=== PATIENT | female | born 1945 | race American Indian/Alaskan Native ===

== ENCOUNTER 2022-05-14 05:52 | Day surgery (SDC) | payer MEDICARE, OTHER ==
[~2022-05-14] VITALS: Ht 157.5 cm; Wt 55.9 kg
--- NOTE | ~2022-05-14 | OR ---
[facility] [address] [place], [place] [address] Draft DATE OF OPERATION: 05/14/2022 SURGEON: Pal Carranza MD PREOPERATIVE DIAGNOSIS: Asymptomatic gallstones and 15 mm gallbladder wall polyp. POSTOPERATIVE DIAGNOSIS: Asymptomatic gallstones and 15 mm gallbladder wall polyp. PROCEDURES: 1. Laparoscopic cholecystectomy with intraoperative cholangiogram. 2. Surgeon-directed fluoroscopy. ANESTHESIA: General endotracheal, Yevgeniy Jose NET FISHER and local 10 mL of 0.25% Marcaine with epinephrine. INDICATION: This 76-year-old woman is a patient of Annmarie Smallwood PA-C from [facility] and recently Birdie Zaman MD, Urology. She was noted to have microhematuria and underwent a CT scan which did not elucidate the source of her microhematuria but did demonstrate gallstones as well as a 15 mm gallbladder wall polyp. The patient has essentially no symptoms related to the gallbladder that can be discerned, but given the size of the polyp (15 mm), the risk of malignancy in the gallbladder polyp is rather increased. Current standards and guidelines indicate appropriateness of cholecystectomy for those patients with gallbladder wall polyps greater than 10 mm in size on the basis of malignancy risk (between 10 and 60%). She is admitted for cholecystectomy on that basis. The risks of bleeding, infection, bile duct injury, need for open procedure and of course, other unforeseen complications were reviewed with her in detail. She understands and wished to proceed. FINDINGS: The airway was secured with a glidescope approach as she has somewhat distorted upper airway anatomy for some reason. It was accomplished safely of course. That was somewhat unexpected as she has a low BMI and no external findings to account for any airway distortion. As regard to the operation, the liver appeared normal. There was no sign of periportal adenopathy. The gallbladder did not appear to be acutely inflamed by any means. The gallbladder once excised showed a large minimally pedunculated villiform polyp 15 mm in size. There were numerous small black gallstones as well. PATIENT NAME: ALVINO HERNANDEZ OPERATIVE REPORT DATE OF : 43 REPORT #: [id number] PHYSICIAN: PAL CARRANZA MD PCP: ANNMARIE SMALLWOOD REPORT IS CONFIDENTIAL AND NOT TO BE RELEASED WITHOUT AUTHORIZATION [facility] [address] [place], [place] [address] Draft Intraoperative cholangiogram was normal. Operation was accomplished without problem or complication in any way. DESCRIPTION OF PROCEDURE: The patient was brought to the operating room, and given a general endotracheal anesthetic. Preoperative antibiotic Ancef was given. Sequential compression device stockings were used and heparin subcutaneously administered. The abdomen was prepared with a chlorhexidine solution and draped sterilely. A lower midline incision was notable from the past. Infraumbilical incision was made and using an open Kayden cannula technique, the abdomen was entered and pneumoperitoneum achieved to a level of 14 mmHg of carbon dioxide gas. Intra-abdominal inspection showed no sign of ascites or carcinomatosis. The liver appeared normal. The gallbladder had a generally normal appearance. It was slightly distended. No doubt related to her n.p.o. status. Three additional trocars were placed in usual configuration in the subxiphoid, right midclavicular, and right anterior axillary line. The gallbladder was elevated cephalad and retracted laterally. Using blunt electrocautery dissection, the triangle of Calot was dissected free. A relatively obvious biliary anatomy was noted including the common bile duct, common hepatic duct, and infundibulum of the gallbladder. With meticulous care, the triangle of Calot was dissected free ultimately identifying the cystic duct and cystic arterial branch. The cystic artery was doubly clipped and divided and the clip was applied across the gallbladder cystic duct junction and a transverse choledochotomy made in the cystic duct. Egress of clear bile was noted. Using the Vaughn type cholangiocatheter, intraoperative cholangiography was undertaken showing free flow of contrast in biliary tree with prompt emptying into the duodenum. There was no sign of filling defect or other abnormality. The catheter was removed and the cystic duct was triply clipped and divided and the gallbladder dissected free in a retrograde fashion without entry into the gallbladder. Gallbladder was extracted through the infraumbilical port site without problem, opening on the back table and found to have black soft gallstones but also a large 15 mm polyp. It appeared to have a very narrow pedunculated base grossly. Photographs were taken. The intra-abdominal cavity was reinspected and irrigation undertaken. There was no sign of bleeding or other problem. Certainly, no bile leak or other issue. Excess irrigation fluid was suctioned free and the trocars removed under direct visualization showing no sign of bleeding. The infraumbilical fascial incision was reapproximated with interrupted 0 Vicryl suture. 10 mL of 0.25% Marcaine with epinephrine was injected locally. The skin was then closed with interrupted 3-0 Vicryl. Steri-Strips were applied. The patient was ultimately extubated and transferred to the recovery room in good condition having suffered no complication. Sponge, needle, and instrument counts were reported as correct x3. PATIENT NAME: ALVINO HERNANDEZ OPERATIVE REPORT DATE OF : 43 REPORT #: [id number] PHYSICIAN: PAL CARRANZA MD PCP: ANNMARIE SMALLWOOD REPORT IS CONFIDENTIAL AND NOT TO BE RELEASED WITHOUT AUTHORIZATION [address], [place] [address] Draft MD CLEMENTE Wang/JEAN PIERRE /[id number] cc: Annmarie Zaman MD Copies: ANNMARIE SMALLWOOD AIMEE MD ~ PATIENT NAME: ALVINO HERNANDEZ OPERATIVE REPORT DATE OF : 43 REPORT #: [id number] PHYSICIAN: PAL CARRANZA MD PCP: ANNMARIE SMALLWOOD REPORT IS CONFIDENTIAL AND NOT TO BE RELEASED WITHOUT AUTHORIZATION
[~2022-05-14 05:52] MED LIST: CALCIUM + D3 E1 EACH PO
[2022-05-14] MEDS ORDERED: VITAMIN B-121000 MC3 PO (06:15)
--- NOTE | 2022-05-14 09:01 | NUR ---
05/14/22 0901 Citlali Paulson 0833 PATIENT ARRIVES TO PACU RESTING WITH EYES CLOSED, DOES NOT OPEN EYES WITH VERBAL STIMULI. RESP EVEN AND UNLABORED, ROOM AIR SATS >98%.
[2022-05-14] MEDS ORDERED: HYDROCODON-ACE1 EA10 PO (09:16)
[2022-05-14] MEDS ORDERED: IBUPROFEN600 MG PO (09:16)
[2022-05-14] MEDS ORDERED: ACETAMINOPHEN500 MG PO (09:16)
--- NOTE | 2022-05-14 10:07 | NUR ---
0950-PATIENT UP TO BEDSIDE COMMODE WITH 1 RN ASSIST AND [employer] PROJECT MANAGER. PATIENT UNSTEADY. PATIENT VOIDS 550ML OF YELLOW URINE. 1000-PATIENT BACK TO BED. 1005-PATIENT TAKING SIPS OF WATER. WARM BLANKET PROVIDED.
--- NOTE | 2022-05-14 10:24 | NUR ---
8835 PT BACK TO ROOM FROM FROM PACU, DRAWSY BUT AWAKE, DENIES PAIN OR NAUSEA. WATER GIVEN PT TAKING SIPS OF WATER TOLERATES WELL.
--- NOTE | 2022-05-14 10:26 | NUR ---
PT RESTING IN BED, GAVE REASSURANCE AND BLESSING. WILL FOLLOW
--- NOTE | 2022-05-14 10:34 | NUR ---
PT RESTING COMFORTABLY, DENIES PAIN AND NAUSEA, WARM BLANKET AND ONEL HUGGER GIVEN, CALL LIGHT WITHIN REACH.
--- NOTE | 2022-05-14 11:43 | NUR ---
1125 PT UP TO COMMOD SHE VOIDED 300ML OF CLEAR YELLOW URINE, PT TUCKED BACK INTO BED WITH WARM BLANKETS AND ONEL HUGGER. SHE COMPLAINS OF NAUSEA, ZOFRAN GIVEN.
--- NOTE | 2022-05-14 11:58 | NUR ---
UMBILICAL INCISION HAS SMALL AMOUNT OF RED BLOOD OOZING BAND AID PLACED OVER STERISTRIPS
--- NOTE | 2022-05-14 12:48 | NUR ---
PT LAYING ON HER SIDE FOR COMFORT. REPORTS NAUSEA IS BETTER BUT DECLINES ANYTHING TO EAT. TAKING SIPS OF WATER TOLERATES WELL. DENIES PAIN.
--- NOTE | 2022-05-14 13:44 | NUR ---
PT AWAKE AND ALERT UP TO COMMOD, SHE WAS ABLE TO VOID 500ML OF CLEAR YELLOW URINE. SHE ASKED FOR JELLO SHE TOLERATES WELL.
--- NOTE | 2022-05-14 14:16 | NUR ---
PT REPORTS FEELING NAUSEOUS, DR SHON LY GIVEN
--- NOTE | 2022-05-14 14:34 | NUR ---
1426 PT REPORTS NAUSEA IS BETTER, STATES SHE JUST WANTS TO GO HOME AND SLEEP. DENIES PAIN. PT ABLE TO DRESS HERSELF DISCHARGE INSTRUCTIONS GIVEN TO PT SHE VOICED UNDERSTANDING.
--- NOTE | 2022-05-17 17:03 | NUR ---
NURSE CALL BACK- NO CONCERNS OR QUESTIONS. REMINDED PATIENT TO FOLLOW UP WITH HER PCP REGARDING HER BP. STATES SHE WILL CALL [facility].
== END 2022-05-14 14:23 | disposition home or self-care (01) ==
LOC: DS 05:52
PROVIDERS: ATTEND Surgery
PROC: 0FT40ZZ Resection of Gallbladder, Open Approach (ICD-10-PCS; principal; 2022-05-14 07:30)
DX: K80.20 Calculus of gallbladder without cholecystitis without obstruction (principal); R41.81 Age-related cognitive decline
CPT/HCPCS: 74300; J0690; J1100; J1644; J1790; J2001; J2405; J2704; J3010; J7121; Q9967